=== PATIENT | female | born 1970 | race Caucasian/White ===

== ENCOUNTER 2018-12-02 21:49 | Emergency (ER) | payer SELFPAY ==
[2018-12-03] MEDS ORDERED: CEPH-443 PO (07:37)
== END 2018-12-02 21:57 | disposition left against medical advice (07) ==
LOC: E/R 21:49
DX: Z53.21 Procedure and treatment not carried out due to patient leaving prior to being seen by health care provider (principal)

== ENCOUNTER 2018-12-03 06:50 | Emergency (ER) | payer SELFPAY ==
[~2018-12-03] VITALS: Wt 62.8 kg
[2018-12-03 06:51] VITALS: BP 128/76; PULSE 78; RESP 18
[2018-12-03] MEDS ORDERED: LIDOCAINE 1% (MDV) 20 ML INJ SC ONE (07:30)
[2018-12-03] MEDS ORDERED: DIPHTH/TET/ACEL PERTUSS (ADULT) 0.5 ML VIAL IM* ONE (07:30)
[2018-12-03] MEDS ORDERED: CEPH-443 PO (07:37)
[2018-12-03] MEDS ORDERED: IBUPROFEN 800 MG TAB PO ONE (08:00)
--- NOTE | 2018-12-03 08:58 | ERD ---
ER Documentation Chief Complaint Chief Complaint chin lac HPI 48-year-old female presenting with a laceration to her under her chin and neck. Patient sustained laceration last night after piece a mirror cut her neck. It was a large piece and there is no concern for fragments. Patient does not recall her last tetanus shot. She had no trouble swallowing. Denies fevers. Denies medical problems. NKDA. Surgical history is hand surgery. Social history smokes 10 cigarettes a day. ROS All systems reviewed and are negative except as per history of present illness. Medications Home Meds Active Scripts Cephalexin* (Keflex*) 500 Mg Capsule, 500 MG PO QID for 7 Days, CAP Prov:MARISSA MIMS PA-C 12/03/18 Allergies Allergies: Coded Allergies: No Known Allergy (Unverified , 12/03/18) PMhx/Soc Medical and Surgical Hx: pt denies Medical Hx, pt denies Surgical Hx Hx Alcohol Use: No Hx Substance Use: No Hx Tobacco Use: Yes Smoking Status: Current every day smoker FmHx Family History: No diabetes, No coronary disease, No other Physical Exam Vitals Vital Signs Date Temp Pulse Resp B/P (MAP) Pulse Ox O2 O2 Flow FiO2 Time Delivery Rate 12/03/18 97.8 78 18 128/76 99 06:51 (93) Physical Exam GENERAL: The patient is well-appearing, well-nourished, in no acute distress HEENT: Atraumatic. Conjunctivae are pink. Pupils equal, round, and reactive to light. There is no scleral icterus. Tympanic membranes clear bilaterally. Oropharynx clear. NECK: C-spine is soft and supple. There is no meningismus. There is no cervica l lymphadenopathy. CHEST: Clear to auscultation bilaterally. There are no rales, wheezes or rhonchi. HEART: Regular rate and rhythm. No murmurs, clicks, rubs or gallops. SKIN: 2 cm linear laceration noted on the neck. 2 cm flap laceration noted to the underside of the chin. Results 24 hrs Current Medications Medications Dose Sig/Dionne Start Time Status Last (Trade) Ordered Route PRN Stop Time Admin Dose Reason Admin Diphtheria/ 0.5 ml ONCE ONCE 12/03/18 DC 12/03/18 Tetanus/Acell IM* 07:30 07:10 Pertussis 12/03/18 07:31 (Adacel) Lidocaine 20 ml ONCE ONCE 12/03/18 DC (Xylocaine SC 07:30 1% (Mdv) 20 12/03/18 07:31 ml) Ibuprofen 800 mg ONCE ONCE 12/03/18 DC 12/03/18 (Motrin) PO 08:00 07:49 12/03/18 08:01 Procedures/MDM ER course: Tdap given ED. Laceration Repair by me: Anesthesia: 1% lidocaine locally Location: chin and neck Tendon/Joint/Nerves: No injury Foreign body: None detected after copious irrigation and exploration Technique: Simple Interrupted Sutures Complexity: No subcutaneous sutures/mucosal repair/edge excision Post Closure Length: 2 cm both wounds Patient's bleeding was easily controlled in the department and there is no indication of anemia. No evidence of compartment syndrome, neurologic injury, vascular injury, open joint, tendon laceration, or foreign body. Patient is appropriate for outpatient follow up. 48 hour wound check. Scar minimization instructions given. MDM: 48-year-old female presenting with laceration to the underside of the neck. Patient was given tetanus shot in the ED. I have low suspicion for retained foreign body or tendon or ligament injury. I have low suspicion for severe neuro deficit. She is discharged stricter precautions and told to follow-up with primary care within 1-2 days for close evaluation. Patient is told symptoms change or worsen to return sooner to the ER. She is recommended to have wound check in 2 days and have sutures removed within 7 days. All questions answered at discharge Departure Diagnosis: Primary Impression: Laceration Condition: Stable Patient Instructions: Laceration, Face (Suture Or Tape) Referrals: [facility] YOU HAVE RECEIVED A MEDICAL SCREENING EXAM AND THE RESULTS INDICATE THAT YOU DO NOT HAVE A CONDITION THAT REQUIRES URGENT TREATMENT IN THE EMERGENCY DEPARTMENT. FURTHER EVALUATION AND TREATMENT OF YOUR CONDITION CAN WAIT UNTIL YOU ARE SEEN IN YOUR DOCTORS OFFICE WITHIN THE NEXT 1-2 DAYS. IT IS YOUR RESPONSIBILITY TO MAKE AN APPOINTMENT FOR FOLOW-UP CARE. IF YOU HAVE A PRIMARY DOCTOR --you should call your primary doctor and schedule an appointment IF YOU DO NOT HAVE A PRIMARY DOCTOR YOU CAN CALL OUR PHYSICIAN REFERRAL HOTLINE AT IF YOU CAN NOT AFFORD TO SEE A PHYSICIAN YOU CAN CHOSE FROM THE FOLLOWING [facility] [address] [facility]. [facility] [address] [facility]. [facility] [address] [facility] [address] [facility] [address] [facility]. [facility] [address] Additional Instructions: FOLLOW UP WITH YOUR PRIMARY CARE PHYSICIAN TOMORROW.Return to this facility if you are not improving as expected. MARISSA MIMS PA-C Dec 03, 2018 08:58
== END 2018-12-03 07:53 | disposition home or self-care (01) ==
LOC: FTE 06:50
DX: S01.81XA Laceration without foreign body of other part of head, initial encounter (principal); F17.210 Nicotine dependence, cigarettes, uncomplicated; S11.91XA Laceration without foreign body of unspecified part of neck, initial encounter; W26.8XXA Contact with other sharp object(s), not elsewhere classified, initial encounter; Y92.9 Unspecified place or not applicable; Z23 Encounter for immunization
CPT/HCPCS: 90471; 90715

== ENCOUNTER 2018-12-10 11:25 | Emergency (ER) | payer OTHER ==
[~2018-12-10] VITALS: Wt 78.0 kg
[~2018-12-10 11:25] MED LIST: CEPH-443 PO
[2018-12-10 11:28] VITALS: BP 144/78; PULSE 89; RESP 18
--- NOTE | 2018-12-10 12:09 | ERD ---
ER Documentation Chief Complaint Chief Complaint CHIN SUTURE REMOVAL HPI Patient is a 48-year-old female presents the ER for concerns of suture removal. Patient sustained a laceration on 12-03-18 to her chin and neck after a piece of glass cut her. Patient states she did take the antibiotics for a few days however she did stop taking it because she did not like the way it made her feel nauseous. Patient denies any fevers or chills. Patient denies any redness, warmth, swelling. ROS All systems reviewed and are negative except as per history of present illness. Medications Home Meds Active Scripts Cephalexin* (Keflex*) 500 Mg Capsule, 500 MG PO QID for 7 Days, CAP Prov:MARISSA MIMS PA-C 12/03/18 Allergies Allergies: Coded Allergies: No Known Allergy (Unverified , 12/03/18) PMhx/Soc Hx Alcohol Use: No Hx Substance Use: No Hx Tobacco Use: Yes FmHx Family History: No diabetes Physical Exam Vitals Vital Signs Date Temp Pulse Resp B/P (MAP) Pulse Ox O2 O2 Flow FiO2 Time Delivery Rate 12/10/18 98.1 89 18 144/78 99 11:28 (100) Physical Exam GENERAL: Well-developed, well-nourished female. Appears in no acute distress. Speaking in full sentences. HEAD: Normocephalic, atraumatic. EYES: Pupils are equally reactive bilaterally. EOMs grossly intact. No conjunctival erythema. NECK: Supple. No meningismus. Normal range of motion of the neck. LUNG: No acute respiratory distress. EXTREMITIES: Equal pulses bilaterally. No peripheral clubbing, cyanosis or edema. No unilateral leg swelling. NEUROLOGIC: Alert and oriented. Moving all four extremities without any difficulty. Normal speech. Steady gait. SKIN: 2 2 cm linear lacerations noted to the the patient's neck as well as chin. Sutures in place. Healing well. No wound dehiscence. No surrounding erythema or warmth. No fluctuance or induration. Procedures/MDM Suture Removal by me: 13 Sutures removed with tweezers and scissors without incident. Wound shows no evidence of infection, foreign body, neurologic injury, vascular injury, open joint or tendon laceration. Patient to follow up PRN. Departure Diagnosis: Primary Impression: Encounter for removal of sutures Condition: Stable Patient Instructions: Suture Removal, No Complication Referrals: [facility] YOU HAVE RECEIVED A MEDICAL SCREENING EXAM AND THE RESULTS INDICATE THAT YOU DO NOT HAVE A CONDITION THAT REQUIRES URGENT TREATMENT IN THE EMERGENCY DEPARTMENT. FURTHER EVALUATION AND TREATMENT OF YOUR CONDITION CAN WAIT UNTIL YOU ARE SEEN IN YOUR DOCTORS OFFICE WITHIN THE NEXT 1-2 DAYS. IT IS YOUR RESPONSIBILITY TO MAKE AN APPOINTMENT FOR FOLOW-UP CARE. IF YOU HAVE A PRIMARY DOCTOR --you should call your primary doctor and schedule an appointment IF YOU DO NOT HAVE A PRIMARY DOCTOR YOU CAN CALL OUR PHYSICIAN REFERRAL HOTLINE AT IF YOU CAN NOT AFFORD TO SEE A PHYSICIAN YOU CAN CHOSE FROM THE FOLLOWING [facility] [address] [facility] [address] [facility]. [facility] [address] [facility] [facility] [address] [facility] [facility] [address] [facility]. [facility] [address] [facility]. [facility] YOU HAVE RECEIVED A MEDICAL SCREENING EXAM AND THE RESULTS INDICATE THAT YOU DO NOT HAVE A CONDITION THAT REQUIRES URGENT TREATMENT IN THE EMERGENCY DEPARTMENT. FURTHER EVALUATION AND TREATMENT OF YOUR CONDITION CAN WAIT UNTIL YOU ARE SEEN IN YOUR DOCTORS OFFICE WITHIN THE NEXT 1-2 DAYS. IT IS YOUR RESPONSIBILITY TO MAKE AN APPOINTMENT FOR FOLOW-UP CARE. IF YOU HAVE A PRIMARY DOCTOR --you should call your primary doctor and schedule and appointment IF YOU DO NOT HAVE A PRIMARY DOCTOR YOU CAN CALL OUR PHYSICIAN REFERRAL HOTLINE AT . IF YOU CAN NOT AFFORD TO SEE A PHYSICIAN YOU CAN CHOSE FROM THE FOLLOWING [facility]: [facility] [address] [place] [address] [facility] [address] [place] [address] [facility] [address] [place] [address] SAURAV TORREZ PA-C Dec 10, 2018 12:09
== END 2018-12-10 15:08 | disposition home or self-care (01) ==
LOC: FTE 11:25
DX: Z48.02 Encounter for removal of sutures (principal)
CPT/HCPCS: 99281